=== PATIENT | female | born 1990 | race African-American/Black ===

== ENCOUNTER 2020-11-18 00:09 | Emergency (ER) | payer MEDICAID ==
[~2020-11-18] VITALS: Ht 167.6 cm; Wt 74.8 kg
[2020-11-18 00:32] VITALS: BP 130/76
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
[2020-11-18] MEDS ORDERED: IBUP-1957 PO (00:42)
[2020-11-18] MEDS ORDERED: CYCL10TA9 PO (00:42)
[2020-11-18] MEDS ORDERED: CYCLOBENZAPRINE 10 MG TABLET ONE (00:44)
[2020-11-18] MEDS ORDERED: IBUPROFEN 400 MG TABLET ONE (00:44)
[2020-11-18] MEDS: CYCLOBENZAPRINE 10 MG TABLET PO ONE (00:52)
[2020-11-18] MEDS: IBUPROFEN 400 MG TABLET PO ONE (00:52)
== END 2020-11-18 01:18 | disposition home or self-care (01) ==
LOC: ER 00:09
DX: M79.18 Myalgia, other site (principal); M54.5 Low back pain; M54.2 Cervicalgia; M25.512 Pain in left shoulder; Z79.899 Other long term (current) drug therapy; V49.49XA Driver injured in collision with other motor vehicles in traffic accident, initial encounter; Y93.89 Activity, other specified; Y92.488 Other paved roadways as the place of occurrence of the external cause; Y99.8 Other external cause status